=== PATIENT | female | born 1970 | race Caucasian/White ===

== ENCOUNTER → 2017-05-29 | Outpatient (CLI) | payer OTHER ==
--- NOTE | 2017-05-29 09:21 | DIAGNOSTIC IMAGING REPORT ---
CHEST 2 VIEWS ROUTINE CLINICAL HISTORY: COUGH COMPARISON STUDY: No previous studies for comparison. FINDINGS: The heart is normal in size. There is no failure. There are no pleural effusions. There is slight indistinctness of the right heart border. There is an equivocal minor right middle lobe airspace opacity, atelectatic versus inflammatory/infectious[ IMPRESSION: Equivocal minimal right middle lobe airspace opacity. Follow-up radiography subsequent to treatment is recommended. Electronically signed by: Silvestre Chandra M.D. 05/29/2017 9:19 AM Dictated Date/Time: 05/29/2017 9:17 AM
== END | disposition home or self-care (01) ==
LOC: C.RAD1850 09:05
PROVIDERS: ATTEND Family Medicine
DX: R05 Cough (principal); R91.8 Other nonspecific abnormal finding of lung field